=== PATIENT | male | born 1985 | race African-American/Black ===

== ENCOUNTER 2022-09-21 15:54 | Emergency (ER) | payer SELFPAY ==
[~2022-09-21] VITALS: Ht 180.3 cm; Wt 80.0 kg
[2022-09-21 16:01] VITALS: BP 134/92
[2022-09-21] MEDS ORDERED: IBUP-2029 MT (17:43)
[2022-09-21] MEDS ORDERED: LORA10CA MT (17:43)
== END 2022-09-21 17:51 | disposition home or self-care (01) ==
LOC: ER 16:41
DX: H92.01 Otalgia, right ear (principal); B34.9 Viral infection, unspecified
CPT/HCPCS: 99281